=== PATIENT | male | born 1990 | race Caucasian/White ===

== ENCOUNTER → 2020-11-26 | Outpatient (CLI) | payer OTHER ==
[~2020-11-26] MED LIST: PANT40TA6 PO
== END ==
LOC: LAB 08:00
PROVIDERS: ATTEND Nurse Anesthetist, Certified Registered
DX: Z01.812 Encounter for preprocedural laboratory examination (principal); R13.10 Dysphagia, unspecified; Z20.822 Contact with and (suspected) exposure to COVID-19
CPT/HCPCS: U0003; U0005

== ENCOUNTER → 2020-11-30 | Day surgery (SDC) | payer OTHER ==
[~2020-11-30] MED LIST changes: +GLYCOPYRROLATE 1 MG/5 ML VIAL. ONE; +IPRATRPIUM/ALBUTEROL 0.5/2.5MG 3 ML NEBU. NEB PRN; +LIDOCAINE 2% PF 5 ML VIAL. ONE; +MIDAZOLAM HCL PF 2 MG/2 ML VIAL. IV ONE; +ONDANSETRON PF 4 MG/2 ML VIAL. IV PRN; +PROPOFOL 10,000 MCG/ML (20ML) VIAL IV ONE
[2020-11-30] MEDS: IV RINGERS SOLUTION,LACTATED 1,000 ML IV SCH (10:33)
[2020-11-30 12:10] VITALS: BP 117/73
--- NOTE | 2020-12-03 17:07 | PATHOLOGY ---
[facility] Accession Number: [id number] . 01 Material submitted: . PART A: esophagus - DISTAL ESOPHAGUS BIOPSY FOR EOE. Modifiers: distal PART B: esophagus - PROXIMAL ESOPHAGUS BIOPSY FOR EOE. Modifiers: proximal . 01 Clinical history: . DYSPHAGIA EGD . 02 Diagnosis: A. Esophageal biopsies, distal esophagus: - Eosinophilic esophagitis. . B. Esophageal biopsies, proximal esophagus: - Eosinophilic esophagitis. . (JP:mm; 12/03/2020) [facility] 12/03/2020 1617 Local . 02 Comment: Sections of the distal and proximal esophageal biopsies appear similar and reveal tangentially-oriented segments of hyperplastic squamous esophageal mucosa. Both sites show numerous intraepithelial eosinophils supportive of the diagnosis of eosinophilic esophagitis. There is no evidence of Murillo's change, dysplasia, or malignancy. . (JPM:tee; 12/03/2020) . 02 Electronically signed: . Eliel Mac MD, Pathologist NPI- [id number] . 01 Gross description: . A. Received in formalin labeled "Mateo Puente, distal esophagus for EOE" are multiple escobar-brown soft tissue fragments measuring in aggregate 0.5 x 0.3 x 0.1 cm. The specimen is submitted entirely in A1. . B. Received in formalin labeled "Cindi, Mateo, proximal esophagus for EOE" are multiple escobar-brown soft tissue fragments measuring in aggregate 0.4 x 0.4 x 0.1 cm. The specimen is submitted entirely in B1. ([facility] 12/02/2020) [facility] 12/02/2020 1151 Local . 02 Pathologist provided ICD-10: K20.0 . 02 CPT . 310170, [id number] Specimen Comment: A courtesy copy of this report has been sent to [phone] Specimen Comment: Report sent to / DR VELA Performed at: [address] [facility], [place] [id number] MD Amador Pacheco MD Phone: [phone] Performed at: 02 [facility] [address] [place], [place] [id number] MD Eliel Mac MD Phone: [phone]
== END | disposition home or self-care (01) ==
LOC: SURG 09:55
PROVIDERS: ATTEND Internal Medicine Gastroenterology
DX: R13.10 Dysphagia, unspecified (principal); K21.00 Gastro-esophageal reflux disease with esophagitis, without bleeding; K22.8 Other specified diseases of esophagus; Z79.899 Other long term (current) drug therapy; Z72.89 Other problems related to lifestyle
CPT/HCPCS: 43239; J2001; J2704; J3490; J7120